=== PATIENT | female | born 1980 | race American Indian/Alaskan Native ===

== ENCOUNTER 2018-09-03 16:12 | Emergency (ER) | payer OTHER ==
[2018-09-03 17:17] VITALS: BP 161/93
[2018-09-03] MEDS ORDERED: NORCO 5/325 PO ONE (17:35)
[2018-09-03] MEDS ORDERED: MOTRIN PO ONE (17:35)
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
--- NOTE | 2018-09-04 10:27 | XRay Report ---
FINAL REPORT EXAM: XRAY CHEST 2 VIEWS HISTORY: SOB. Patient of size, best images possible. TECHNIQUE: Frontal and lateral chest x-ray. PRIORS: None. FINDINGS: Patient body habitus limits examination obscuring lung bases somewhat. Cardiac and mediastinal silhouette within normal limits. Lungs are normally expanded. No significant vascular congestion. No focal consolidation, apparent pleural effusion or pneumothorax. Bony thorax grossly unremarkable. IMPRESSION: 1. Limited examination. No acute findings.
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
== END 2018-09-03 20:12 | disposition home or self-care (01) ==
LOC: ED 16:12
DX: S16.1XXA Strain of muscle, fascia and tendon at neck level, initial encounter (principal); M23.92 Unspecified internal derangement of left knee; R50.9 Fever, unspecified; R05 Cough; Z91.013 Allergy to seafood; V49.49XA Driver injured in collision with other motor vehicles in traffic accident, initial encounter; Y93.89 Activity, other specified; Y92.488 Other paved roadways as the place of occurrence of the external cause; Y99.8 Other external cause status
CPT/HCPCS: 71046; 99283

== ENCOUNTER 2019-06-14 19:52 | Emergency (ER) | payer SELFPAY ==
[2019-06-14 20:01] VITALS: BP 190/102
--- NOTE | 2019-06-14 20:02 | Event Note ---
ED Screening Note Date of service: 06/14/19 Time: 19:59 ED Screening Note: 38 y/o female comes in for sob fever, chills rash. This initial assessment/diagnostic orders/clinical plan/treatment(s) is/are subject to change based on patients health status, clinical progression and re- assessment by fellow clinical providers in the ED. Further treatment and workup at subsequent clinical providers discretion. Patient/guardian urged not to elope from the ED as their condition may be serious if not clinically assessed and managed. Initial orders include:
[2019-06-14 20:16] LABS: Basophils # (Auto) 0.1 K/mm3 (0.0-0.1); Basophils % (Auto) 0.9 % (0.0-1.8); Eosinophils # (Auto) 0.2 K/mm3 (0.0-0.4); Eosinophils % (Auto) 2.6 % (0.0-4.3); Hematocrit 33.4 % (30.3-42.9); Hemoglobin 10.4 gm/dl (10.1-14.3); Lymphocytes % (Auto) 36.8 % (13.4-35.0); Mean Corpuscular HGB Conc 31 % (30-34); Monocytes # (Auto) 0.6 K/mm3 (0.0-0.8); Monocytes % (Auto) 6.7 % (0.0-7.3); Platelet Count 358 K/mm3 (140-440); Red Blood Count 5.17 M/mm3 (3.65-5.03)
[2019-06-14 20:30] LABS: Mean Corpuscular Volume 65 fl (79-97); Red Cell Distribution Width 21.2 % (13.2-15.2)
[2019-06-14 20:43] LABS: Alanine Aminotransferase 12 units/L (7-56); Albumin 3.5 g/dL (3.9-5); BUN/Creatinine Ratio 16; Blood Urea Nitrogen 11 mg/dL (7-17); Calcium 8.9 mg/dL (8.4-10.2); Hemolysis Index 0
== END 2019-06-14 22:10 | disposition left against medical advice (07) ==
LOC: ED 19:52
DX: R06.02 Shortness of breath (principal); R50.9 Fever, unspecified; R21 Rash and other nonspecific skin eruption; Z53.21 Procedure and treatment not carried out due to patient leaving prior to being seen by health care provider
CPT/HCPCS: 36415; 80053; 85025

== ENCOUNTER 2019-06-15 01:14 | Emergency (ER) | payer SELFPAY ==
--- NOTE | 2019-06-15 02:30 | XRay Report ---
CHEST 2 VIEWS INDICATION / CLINICAL INFORMATION: Cough for 3 days. COMPARISON: None available. FINDINGS: SUPPORT DEVICES: None. HEART / MEDIASTINUM: No significant abnormality. LUNGS / PLEURA: No significant pulmonary or pleural abnormality. No pneumothorax. ADDITIONAL FINDINGS: No significant additional findings. IMPRESSION: No acute findings. Signer Name: Addison Moss MD Signed: 06/15/2019 2:26 AM Workstation Name: [email or web address]
[2019-06-15] MEDS ORDERED: TESSALON PERLES PO ONE (02:45)
--- NOTE | 2019-06-15 02:46 | Emergency Department Report ---
- General Chief Complaint: Upper Respiratory Infection Stated Complaint: COUGH/HEADACHE/NECK PAIN Time Seen by Provider: 06/15/19 02:31 Source: patient Mode of arrival: Ambulatory Limitations: No Limitations - History of Present Illness Initial Comments: Patient is a 38-year-old female presents to emergency room with complaints of a cough that began 5 days ago. She states she has been coughing frequently over the last 5 days. She states she has a subjective fever. The patient denies any production of the cough or rhinorrhea. She has taken Robitussin without much relief. She denies any history of high blood pressure. she states she has increased her salt intake lately. she states she has an allergy to vicodin. - Related Data Previous Rx's Medication Instructions Recorded Last Taken Type ALBUTEROL NEB's [Proventil 0.083% 2.5 mg IH Q4HRT PRN #30 nebu 11/20/18 Unknown Rx NEBS] Acetaminophen [Acetaminophen TAB] 650 mg PO Q4H PRN #15 tablet 11/20/18 Unknown Rx Budesonide [Pulmicort Respules] 0.5 mg IH Q12HRT #30 nebu 11/20/18 Unknown Rx Ipratropium/Albuterol Sulfate 1 ampul IH TIDRT #30 ampul.neb 11/20/18 Unknown Rx [DUONEB *Not for PRN Use*] Montelukast [Singulair] 10 mg PO DAILY #30 tablet 11/20/18 Unknown Rx Pantoprazole [Protonix TAB] 40 mg PO BID 7 Days tablet 11/20/18 Unknown Rx Zolpidem [Ambien] 10 mg PO QHS PRN #10 tablet 11/20/18 Unknown Rx diphenhydrAMINE [Benadryl CAP] 25 mg PO Q6H PRN #15 capsule 11/20/18 Unknown Rx guaiFENesin [Robitussin] 200 mg PO Q4H PRN 7 Days oral.liqd 11/20/18 Unknown Rx levoFLOXacin [Levaquin TAB] 750 mg PO Q24HR #2 tablet 11/20/18 Unknown Rx predniSONE [Prednisone] 1 dose PO DAILY 9 Days tablet 11/20/18 Unknown Rx Azithromycin [Zithromax Z-JUAN] 250 mg PO DAILY 5 Days #6 tablet 06/15/19 Unknown Rx Benzonatate [Tessalon Perles] 100 mg PO Q8HR PRN #20 capsule 06/15/19 Unknown Rx Cetirizine HCl [ZyrTEC 10mg cap] 10 mg PO DAILY #30 capsule 06/15/19 Unknown Rx Fluconazole [Diflucan TAB] 150 mg PO ONCE #1 tablet 06/15/19 Unknown Rx Allergies Allergy/AdvReac Type Severity Reaction Status Date / Time shellfish derived AdvReac Angioedema Verified 06/14/19 20:01 ED Review of Systems ROS: Stated complaint: COUGH/HEADACHE/NECK PAIN Other details as noted in HPI Comment: All other systems reviewed and negative ED Past Medical Hx - Past Medical History Previous Medical History?: Yes Hx Hypertension: Yes Hx Congestive Heart Failure: No Hx Diabetes: No Hx Asthma: Yes Hx COPD: No Additional medical history: Morbid Obesity - Surgical History Past Surgical History?: Yes Additional Surgical History: tubal ligation, - Social History Smoking Status: Never Smoker Substance Use Type: None - Medications Home Medications: Home Medications Medication Instructions Recorded Confirmed Last Taken Type ALBUTEROL NEB's [Proventil 0.083% 2.5 mg IH Q4HRT PRN #30 nebu 11/20/18 Unknown Rx NEBS] Acetaminophen [Acetaminophen TAB] 650 mg PO Q4H PRN #15 tablet 11/20/18 Unknown Rx Budesonide [Pulmicort Respules] 0.5 mg IH Q12HRT #30 nebu 11/20/18 Unknown Rx Ipratropium/Albuterol Sulfate 1 ampul IH TIDRT #30 ampul.neb 11/20/18 Unknown Rx [DUONEB *Not for PRN Use*] Montelukast [Singulair] 10 mg PO DAILY #30 tablet 11/20/18 Unknown Rx Pantoprazole [Protonix TAB] 40 mg PO BID 7 Days tablet 11/20/18 Unknown Rx Zolpidem [Ambien] 10 mg PO QHS PRN #10 tablet 11/20/18 Unknown Rx diphenhydrAMINE [Benadryl CAP] 25 mg PO Q6H PRN #15 capsule 11/20/18 Unknown Rx guaiFENesin [Robitussin] 200 mg PO Q4H PRN 7 Days oral.liqd 11/20/18 Unknown Rx levoFLOXacin [Levaquin TAB] 750 mg PO Q24HR #2 tablet 11/20/18 Unknown Rx predniSONE [Prednisone] 1 dose PO DAILY 9 Days tablet 11/20/18 Unknown Rx Azithromycin [Zithromax Z-JUAN] 250 mg PO DAILY 5 Days #6 tablet 06/15/19 Unknown Rx Benzonatate [Tessalon Perles] 100 mg PO Q8HR PRN #20 capsule 06/15/19 Unknown Rx Cetirizine HCl [ZyrTEC 10mg cap] 10 mg PO DAILY #30 capsule 06/15/19 Unknown Rx Fluconazole [Diflucan TAB] 150 mg PO ONCE #1 tablet 06/15/19 Unknown Rx ED Physical Exam - General Limitations: No Limitations General appearance: alert, in no apparent distress - Head Head exam: Present: atraumatic, normocephalic - Eye Eye exam: Present: normal appearance - ENT ENT exam: Present: mucous membranes moist, other (pale boggy turbinates) - Respiratory Respiratory exam: Present: normal lung sounds bilaterally. Absent: respiratory distress, wheezes, rales, rhonchi, stridor, chest wall tenderness, accessory muscle use, decreased breath sounds, prolonged expiratory - Cardiovascular Cardiovascular Exam: Present: regular rate, normal rhythm, normal heart sounds. Absent: systolic murmur, diastolic murmur, rubs, gallop - Neurological Exam Neurological exam: Present: alert, oriented X3 - Psychiatric Psychiatric exam: Present: normal affect, normal mood - Skin Skin exam: Present: warm, dry, intact ED Course Vital Signs 06/15/19 06/15/19 01:33 02:50 Temperature 98.7 F Pulse Rate 102 H 83 Respiratory 18 18 Rate Blood Pressure 192/105 153/79 [Left] O2 Sat by Pulse 98 100 Oximetry ED Medical Decision Making - Lab Data Vital Signs 06/15/19 06/15/19 01:33 02:50 Temperature 98.7 F Pulse Rate 102 H 83 Respiratory 18 18 Rate Blood Pressure 192/105 153/79 [Left] O2 Sat by Pulse 98 100 Oximetry - Radiology Data Radiology results: report reviewed CHEST 2 VIEWS INDICATION / CLINICAL INFORMATION: Cough for 3 days. COMPARISON: None available. FINDINGS: SUPPORT DEVICES: None. HEART / MEDIASTINUM: No significant abnormality. LUNGS / PLEURA: No significant pulmonary or pleural abnormality. No pneumot horax. ADDITIONAL FINDINGS: No significant additional findings. IMPRESSION: No acute findings. Signer Name: Addison Moss MD Signed: 06/15/2019 2:26 AM Workstation Name: [email or web address] Transcribed By: [place] Dictated By: Addison Moss MD Electronically Authenticated By: Addison Moss MD Signed Date/Time: 06/15/19225 - Medical Decision Making Patient is a 38-year-old female presents to emergency room with complaints of a cough that began 5 days ago. She states she has been coughing frequently over the last 5 days. She states she has a subjective fever. The patient denies any production of the cough or rhinorrhea. She has taken Robitussin without much relief. She denies any history of high blood pressure. she states she has increased her salt intake lately. she states she has an allergy to vicodin. repeat vitals are stable. labs from earlier visit tonight are WNL, no leukocytosis. pt given prescription for zpak, zyrtec and tessalon perles. advised to please take medication as prescribed. Follow-up with primary care doctor in the next 2-3 days. please discuss with the primary care doctor the elevation in your blood pressure. Keep a blood pressure log and eat a low sodium diet. please incorporate daily exercise. return to the emergency room for any new or worsening symptoms. - Differential Diagnosis PNA, URI, bronchitis, viral syndrome, allergies Critical care attestation.: If time is entered above; I have spent that time in minutes in the direct care of this critically ill patient, excluding procedure time. ED Disposition Clinical Impression: Cough, Elevated blood pressure reading Disposition: DC-01 TO HOME OR SELFCARE Is pt being admited?: No Does the pt Need Aspirin: No Condition: Stable Instructions: Acute Bronchitis (ED) Additional Instructions: Please take medication as prescribed. Follow-up with primary care doctor in the next 2-3 days. please discuss with the primary care doctor the elevation in your blood pressure. Keep a blood pressure log and eat a low sodium diet. please incorporate daily exercise. return to the emergency room for any new or worsening symptoms. Prescriptions: Fluconazole [Diflucan TAB] 150 mg PO ONCE #1 tablet Benzonatate [Tessalon Perles] 100 mg PO Q8HR PRN #20 capsule PRN Reason: Cough Azithromycin [Zithromax Z-JUAN] 250 mg PO DAILY 5 Days #6 tablet Cetirizine HCl [ZyrTEC 10mg cap] 10 mg PO DAILY #30 capsule Referrals: EZE STILES MD [Primary Care Provider] - 2-3 Days Time of Disposition: 02:46 Print Language: TELUGU
[2019-06-15 02:52] VITALS: BP 153/79
== END 2019-06-15 03:03 | disposition home or self-care (01) ==
LOC: ED 01:14
DX: R05 Cough (principal); I10 Essential (primary) hypertension; J45.909 Unspecified asthma, uncomplicated; E66.01 Morbid (severe) obesity due to excess calories; Z68.45 Body mass index [BMI] 70 or greater, adult; Z79.899 Other long term (current) drug therapy; Z98.51 Tubal ligation status; Z91.013 Allergy to seafood
CPT/HCPCS: 71046; 99283